=== PATIENT | male | born 1955 | race African-American/Black ===

== ENCOUNTER 2018-10-26 15:57 | Inpatient (IN) ==
[2018-10-26 16:45] LABS: Albumin 4.4 G/DL (3.4-5.0); Bilirubin,Total 0.6 MG/DL (0.2-1.0); Calcium 9.3 MG/DL (8.5-10.1); Total Protein 7.5 G/DL (6.4-8.3)
[2018-10-26 17:05] LABS: Basophils % 0.3 % (0.0-0.8); Eosinophils # 0.1 10*3/uL (0.0-0.87); Eosinophils % 0.8 % (0.00-10.9); Hematocrit 41.3 VOL% (42.0-52.0); Hemoglobin 12.8 GM/DL (14.0-18.0); Immature Granulocytes % 0.5 %; Immature Granulocytes Absolute 0.04 #; Lymphocytes % 12.1 % (21.2-54.2); Mean Corpuscular Volume 85.2 FL (87-102); Mean Platelet Volume 11.1 FL (9.6-12.0); Monocytes % 7.6 % (1.7-12.7); Neutrophils % 78.7 % (38.7-73.9); Red Blood Count 4.85 MC/CUMM (3.8-5.5); Red Cell Distribution Width 12.9 % (9.3-17.3)
[2018-10-26 17:10] LABS: Platelet Count 28 T/CUMM (130-400)
[2018-10-26 17:12] LABS: White Blood Count 7.9 T/CUMM (4-12)
[2018-10-26] MEDS ORDERED: ONDANSETRON 4 MG/2 ML VIAL IV PRN (17:30)
[2018-10-26] MEDS ORDERED: ASPIRIN EC 325 MG TABLET PO SCH (17:30)
[2018-10-26] MEDS ORDERED: NITROGLYCERIN SL 0.4 MG TABLET SL PRN ×2 (17:30→19:01)
[2018-10-26 17:54] LABS: Band Neutrophils 1 % (0-10); Lymphocytes 10 % (20-55); Segmented Neutrophils 85 % (50-85); Total Cells Counted 100
[2018-10-26] MEDS ORDERED: hydrALAZINE 20 MG/1 ML VIAL IV PRN (19:03)
[2018-10-26] MEDS ORDERED: ACETAMINOPHEN 325 MG TABLET PO PRN (19:03)
[2018-10-26] MEDS ORDERED: ZALEPLON 5 MG CAPSULE PO PRN (19:03)
[2018-10-26] MEDS ORDERED: methylPREDNISolone SOD SUC 125 MG/2 ML VIAL IV ONE (19:59)
[2018-10-26] MEDS ORDERED: DEXTROSE 50% 25 GM/50 ML VIAL IV PRN (20:38)
[2018-10-26] MEDS ORDERED: GLUCAGON 1 MG VIAL IM PRN (20:38)
[2018-10-26] MEDS: INSULIN REGULAR 100 UNIT/ML SUBCUT SCH (21:36)
[2018-10-26] MEDS ORDERED: ENOXAPARIN 120 MG/0.8 ML SYRINGE SUBCUT ONE (22:33)
[2018-10-26] MEDS: ISOSORBIDE MONONITRATE 30 MG TABLET PO SCH (22:46)
[2018-10-26] MEDS: ATORVASTATIN 80 MG TABLET PO SCH (22:46)
[2018-10-26] MEDS: CARVEDILOL 3.125 MG TABLET PO SCH (22:46)
[2018-10-26] MEDS: SODIUM CHLORIDE 0.9% 1,000 ML IV SCH (23:54)
[2018-10-27 01:55] LABS: Basophils % 0.4 % (0.0-0.8); Eosinophils % 0.1 % (0.00-10.9); Hematocrit 39.7 VOL% (42.0-52.0); Hemoglobin 12.5 GM/DL (14.0-18.0); Immature Granulocytes % 0.5 %; Immature Granulocytes Absolute 0.04 #; Lymphocytes # 0.8 10*3/uL (1.4-4.0); Lymphocytes % 9.6 % (21.2-54.2); Mean Corpuscular HGB Conc 31.5 GM/DL (32-36); Mean Corpuscular Volume 84.1 FL (87-102); Mean Platelet Volume 11.1 FL (9.6-12.0); Monocytes % 3.1 % (1.7-12.7); Neutrophils % 86.3 % (38.7-73.9); Platelet Count 186 T/CUMM (130-400); Red Blood Count 4.72 MC/CUMM (3.8-5.5); White Blood Count 7.8 T/CUMM (4-12)
[2018-10-27 02:16] LABS: Albumin 3.7 G/DL (3.4-5.0); Bilirubin,Total 0.7 MG/DL (0.2-1.0); Osmolality,Calculated 288.1 MOS/KG (273-304); Risk Ratio 3.64; Total Protein 7.3 G/DL (6.4-8.3)
[2018-10-27] MEDS ORDERED: diphenhydrAMINE CAP 25 MG CAPSULE PO ONE (05:30)
[2018-10-27] MEDS ORDERED: DIAZEPAM 5 MG TABLET PO ONE (05:30)
[2018-10-27] MEDS ORDERED: VERAPAMIL 5 MG/2 ML VIAL ONE (05:55)
[2018-10-27] MEDS ORDERED: HEPARIN/NACL 0.9% 2 UNITS/ML 1,000 ML IV ONE (05:55)
[2018-10-27] MEDS ORDERED: LIDOCAINE 1% 20 ML VIAL ONE (05:55)
[2018-10-27] MEDS ORDERED: NITROGLYCERIN DRIP 50 MG/250 ML BOTTLE IV ONE (05:55)
[2018-10-27] MEDS ORDERED: MIDAZOLAM 2 MG/2 ML VIAL ONE ×2 (06:22→06:42)
[2018-10-27] MEDS ORDERED: fentaNYL 100 MCG/2 ML VIAL ONE (06:22)
[2018-10-27] MEDS ORDERED: ENOXAPARIN 60 MG/0.6 ML SYRINGE ONE (06:33)
[2018-10-27] MEDS ORDERED: diphenhydrAMINE 50 MG/1 ML VIAL ONE (06:54)
[2018-10-27] MEDS ORDERED: TICAGRELOR 90 MG TABLET ONE (07:06)
[2018-10-27] MEDS ORDERED: metFORMIN 500 MG TABLET PO SCH (08:00)
[2018-10-27] MEDS: INSULIN REGULAR 100 UNIT/ML SUBCUT SCH ×4 (08:39→20:59)
[2018-10-27] MEDS ORDERED: LOSARTAN 50 MG TABLET PO SCH (09:00)
[2018-10-27] MEDS: ASPIRIN EC 81 MG TABLET PO SCH (09:19)
[2018-10-27] MEDS: SODIUM CHLORIDE 0.9% 1,000 ML IV SCH ×2 (09:19→16:14)
[2018-10-27] MEDS: CHOLECALCIFEROL 5,000 UNIT TABLET PO SCH (09:20)
[2018-10-27] MEDS: TICAGRELOR 90 MG TABLET PO SCH ×2 (09:20→21:00)
[2018-10-27] MEDS: ISOSORBIDE MONONITRATE 30 MG TABLET PO SCH (09:20)
[2018-10-27] MEDS: PANTOPRAZOLE 40 MG TABLET PO SCH (09:20)
[2018-10-27] MEDS: CARVEDILOL 3.125 MG TABLET PO SCH ×2 (09:20→16:15)
[2018-10-27] MEDS: ATORVASTATIN 80 MG TABLET PO SCH (21:01)
[2018-10-28 05:28] LABS: Basophils % 0.2 % (0.0-0.8); Eosinophils # 0.1 10*3/uL (0.0-0.87); Eosinophils % 0.6 % (0.00-10.9); Hematocrit 36.7 VOL% (42.0-52.0); Hemoglobin 11.6 GM/DL (14.0-18.0); Immature Granulocytes % 0.4 %; Immature Granulocytes Absolute 0.04 #; Lymphocytes # 1.5 10*3/uL (1.4-4.0); Lymphocytes % 16.6 % (21.2-54.2); Mean Corpuscular HGB Conc 31.6 GM/DL (32-36); Mean Corpuscular Volume 84.4 FL (87-102); Mean Platelet Volume 10.6 FL (9.6-12.0); Monocytes % 8.5 % (1.7-12.7); Neutrophils % 73.7 % (38.7-73.9); Platelet Count 186 T/CUMM (130-400); Red Blood Count 4.35 MC/CUMM (3.8-5.5); Red Cell Distribution Width 13.2 % (9.3-17.3); White Blood Count 9.1 T/CUMM (4-12)
[2018-10-28 06:02] LABS: Calcium 8.8 MG/DL (8.5-10.1)
[2018-10-28 07:47] VITALS: BP 124/75
[2018-10-28] MEDS: INSULIN REGULAR 100 UNIT/ML SUBCUT SCH (08:15)
[2018-10-28] MEDS: ISOSORBIDE MONONITRATE 30 MG TABLET PO SCH (09:03)
[2018-10-28] MEDS: CARVEDILOL 3.125 MG TABLET PO SCH (09:03)
[2018-10-28] MEDS: TICAGRELOR 90 MG TABLET PO SCH (09:03)
[2018-10-28] MEDS: ASPIRIN EC 81 MG TABLET PO SCH (09:03)
[2018-10-28] MEDS: CHOLECALCIFEROL 5,000 UNIT TABLET PO SCH (09:03)
[2018-10-28] MEDS: PANTOPRAZOLE 40 MG TABLET PO SCH (09:03)
[2018-10-29 13:41] LABS: Scl 70 Ab, IgG, S < 0.2 U
== END 2018-10-28 11:29 | disposition home or self-care (01) | DRG 246 ==
LOC: N.ED 15:57 → N.EDINP 15:57 → N.TELEN 18:14
PROVIDERS: ADMIT Internal Medicine Cardiovascular Disease; ATTEND Internal Medicine Cardiovascular Disease
PROC: CLCCHCL (ICD-10-PCS; 2018-10-27 06:15)